=== PATIENT | female | born 1985 | race Caucasian/White ===

== ENCOUNTER → 2017-12-29 | Day surgery (SDC) | payer BC ==
[~2017-12-29] MED LIST: FENTANYL CITRATE/PF 100MCG/2 ML INJ ONE; HYOSCYAMINE SULFATE 0.5 MG/ML INJ ONE; METOCLOPRAMIDE HCL 10 MG/2ML VIAL ONE; MIDAZOLAM HCL 5MG/ML 2ML VIAL ONE; PROPOFOL IV EMULSION 10 MG/ML 20 ML VIAL ONE
--- OUTSIDE RECORDS SUMMARY | 2017-12-29 11:17 | XMS REPORT | Clinical Summary ---
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 Role Phone Rick Marie MD PCP Allergies Comments Active Allergy Reactions Severity Noted Date Penicillins Hives, 10/30/2015 Itching Medications No known medications Active Problems Problem Noted Date Alopecia 10/30/2015 Vulvar lump 10/30/2015 Hx of abnormal cervical Pap smear 10/30/2015 Overview: Cryosurgery 8 years ago HPV last year Encounters Care Team Description Date Type Specialty Rhonda Holliday MD Cyst of [place]'s gland (Primary Dx) 07/20/2017 Office Visit Obstetrics and Gynecology after 12/28/2016 Family History Medical History Relation Name Comments Colon cancer Father Heart disease Paternal Grandfather Heart disease Paternal Grandmother Relation Name Status Comments Father Alive Paternal Grandfather Paternal Grandmother Social History Date Tobacco Use Types Packs/Day Years Used Current Every Day Smoker Cigarettes 1 Smokeless Tobacco: Never Used Alcohol Use Drinks/Week oz/Week Comments Yes social Sex Assigned at Date Recorded Not on file Industry Job Start Date Occupation Not on file Not on file Not on file Travel End Travel History Travel Start No recent travel history available. Last Filed Vital Signs Time Taken Vital Sign Reading 07/20/2017 3:00 PM CDT Blood Pressure 121/75 07/20/2017 3:00 PM CDT Pulse 76 - Temperature - - Respiratory Rate - - Oxygen Saturation - - Inhaled Oxygen - Concentration 07/20/2017 3:00 PM CDT Weight 68.5 kg (151 lb) 07/20/2017 3:00 PM CDT Height 175.3 cm (5' 9") 07/20/2017 3:00 PM CDT Body Mass Index 22.3 Plan of Treatment Health Maintenance Due Date Last Done Comments MMR VACCINES (1 of - 1986 Standard series) VARICELLA VACCINES (1 of 1998 2 - 2-dose adolescent series) CERVICAL CANCER SCREENING 2006 INFLUENZA VACCINE 09/08/2017 HEPATITIS B VACCINES Aged Out No longer eligible based on patient's age to complete this topic IPV VACCINES Aged Out No longer eligible based on patient's age to complete this topic MENINGOCOCCAL VACCINE Aged Out No longer eligible based on patient's age to complete this topic Results Not on fileafter 12/28/2016 Insurance Payer Benefit Subscriber ID Type Phone Address Plan / Group BCBS BCBS xxxxxxxxxxxx PPO CHOICE PPO/KAREEN SANDS PPO Advance Directives Patient has advance care planning documents on file. For more information, israel dominguez contact: Karlos Acuna [address] [place] [address]
--- OUTSIDE RECORDS SUMMARY | 2017-12-29 11:18 | XMS REPORT | Continuity of Care Document ---
Author Author [facility] Address Unknown Phone Unavailable Problems Problem Status Onset Date Classification Date Reported Comments Source Urinary tract infectious disease 11/03/2017 Diagnosis 11/03/2017 [facility] Acute lower respiratory tract infection 09/24/2016 Diagnosis 09/29/2016 [facility] Tobacco user 09/24/2016 Diagnosis 09/29/2016 [facility] Urinary Tract Infectious Disease Problem 11/03/2017 [facility] Medications Medication Details Route Status Patient Instructions Ordering Provider Order Date Source 200 ACTUAT Albuterol 0.09 MG/ACTUAT Metered Dose Inhaler albuterol sulfate HFA 90 mcg/actuation aerosol inhaler Inhale 2 puffs every 4 hours by inhalation route as needed. Active [facility] Azithromycin 250 MG Oral Tablet azithromycin 250 mg tablet TAKE 2 TABLETS (500 MG) BY ORAL ROUTE ONCE DAILY FOR 1 DAY THEN 1 TABLET (250 MG) BY ORAL ROUTE ONCE DAILY FOR 4 DAYS Active [facility] Albuterol 0.83 MG/ML Inhalant Solution albuterol sulfate 2.5 mg/3 mL (0.083 %) solution for nebulization Give 1 inhalation every 20 minutes by nebulizer route as needed Active [facility] Sulfamethoxazole 800 MG / Trimethoprim 160 MG Oral Tablet [Bactrim] Bactrim DS 800 mg-160 mg tablet Take 1 tablet every 12 hours by oral route as directed for 5 days. Active [facility] Phenazopyridine hydrochloride 200 MG Oral Tablet phenazopyridine 200 mg tablet Take 1 tablet 3 times a day by oral route for 3 days. Active [facility] Allergies, Adverse Reactions, Alerts Substance Category Reaction Severity Reaction type Status Date Reported Comments Source Penicillins Allergy to substance 09/24/2016 [facility] Immunizations Immunization Date Given Site Status Last Updated Comments Source Tdap 02/09/2008 completed [facility] Results Order Name Results Value Reference Range Date Interpretation Comments Source Urinalysis macro (dipstick) panel - Urine COLOR : Yellow 11/03/2017 [facility] Urinalysis macro (dipstick) panel - Urine CLARITY : Turbid 11/03/2017 [facility] Urinalysis macro (dipstick) panel - Urine LEUKOCYTES : Large 11/03/2017 [facility] Urinalysis macro (dipstick) panel - Urine NITRITES : Negative 11/03/2017 [facility] Urinalysis macro (dipstick) panel - Urine UROBILINOGEN : 1 11/03/2017 [facility] Urinalysis macro (dipstick) panel - Urine PROTEIN : 100 11/03/2017 [facility] Urinalysis macro (dipstick) panel - Urine pH : 8.0 11/03/2017 [facility] Urinalysis macro (dipstick) panel - Urine BLOOD : Large 11/03/2017 [facility] Urinalysis macro (dipstick) panel - Urine SPECIFIC GRAVITY : 1.005 11/03/2017 [facility] Urinalysis macro (dipstick) panel - Urine KETONES : Negative 11/03/2017 [facility] Urinalysis macro (dipstick) panel - Urine BILIRUBIN : Negative 11/03/2017 [facility] Urinalysis macro (dipstick) panel - Urine GLUCOSE Negative 11/03/2017 [facility] Vital Signs Vital Sign Value Date Comments Source Diastolic (mm Hg) 68 11/03/2017 [facility] Height 69 11/03/2017 [facility] Systolic (mm Hg) 110 11/03/2017 [facility] Weight 154 11/03/2017 [facility] Diastolic (mm Hg) 68 09/24/2016 [facility] Height 69 09/24/2016 [facility] Systolic (mm Hg) 124 09/24/2016 [facility] Weight 134 09/24/2016 [facility] Encounters Location Location Details Encounter Type Encounter Number Reason For Visit Attending Provider ADM Date DC Date Status Source [place] - [facility] - [id number] Kevin Lagman, KUSH: [address] [place] [address], Ph. [id number] Cristobal Pringle 09/24/2016 [facility] [place] - [facility] - [id number] Kevin Lagman, BAGGAGE CHECKER: [address] [place] [address], Ph. [phone] [id number] Cristobal Pringle 09/24/2016 [facility] [place] - [facility] - [id number] Nayak, BAGGAGE CHECKER: [address], [place] [address], Ph. [id number] Gabriel Nayak 11/03/2017 [facility] Procedures Procedure Code Date Perfomer Comments Source
--- OUTSIDE RECORDS SUMMARY | 2017-12-29 11:18 | XMS REPORT | Encounter Summary ---
Author Organization Unknown Address [address] [place] [address] Phone [phone] Reason for Visit Medical Complaint Instructions 1. Acute lower respiratory tract infection azithromycin 250 mg tablet albuterol sulfate HFA 90 mcg/actuation aerosol inhaler albuterol sulfate 2.5 mg/3 mL (0.083 %) solution for nebulization 2. Tobacco user stopping smoking: care instructions Discussion Note Pt is aaox3 and in NAD; verbalizes understanding of all instructions and has no further questions at this time Plan of Care Patient Instructions Take medications as prescribed and discussed; follow up with your PCP within 2-3 days or sooner should symptoms worsen. Go to the ER if you experience shortness of breath or difficulty breathing despite using medications prescribed today. Reminders Provider Appointments None recorded. Lab None recorded. Referral None recorded. Procedures None recorded. Surgeries None recorded. Imaging None recorded. Medications Name Start Date albuterol sulfate 2.5 mg/3 mL (0.083 %) solution for nebulization Give 1 inhalation every 20 minutes by nebulizer route as needed albuterol sulfate HFA 90 mcg/actuation aerosol inhaler Inhale 2 puffs every 4 hours by inhalation route as needed. azithromycin 250 mg tablet TAKE 2 TABLETS (500 MG) BY ORAL ROUTE ONCE DAILY FOR 1 DAY THEN 1 TABLET (250 MG) BY ORAL ROUTE ONCE DAILY FOR 4 DAYS Medications Administered Name Date albuterol sulfate 2.5 mg/3 mL (0.083 %) solution for nebulization Give 1 inhalation every 20 minutes by nebulizer route as needed [id number] Vitals Height Weight BMI Blood Pressure 5 ft 9 in 134 lbs 19.8 kg/m2 124/68 mm[Hg] Lab Results None recorded. Allergies Code Code System Name Reaction Severity Status Onset Penicillins Active Problems Name Status Onset Date Source Urinary Tract Infectious Disease Active Encounter Procedures None recorded. 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 History of Present Illness Wheezing / Cough Reported By: Patient HPI: Location: chest. Quality: congested, tightness, pressure, productive cough, colored phlegm, wheezy cough, wheezing. Severity: worsening, mild, moderate. Duration: 7 days, constant. Onset/Timing: gradual. Context: no foreign travel, sick contact, smoker, allergies. Modifying factors: ; none. Associated Symptoms: no fever, no chills, no sweats, no chest pain, no edema, no heartburn, no significant weight gain, no significant weight loss, no sore throat, no nausea, no vomiting, no diarrhea, no rash, no muscle aches, no headache, yellow-green, thick sputum, shortness of breath, wheezing, morning cough, post nasal drip Review of Systems:ROS as noted in the HPI Review of Systems Basic Reported By: Patient Physical Exam Adult Basic, Adult Female Complete Reported By: Patient Constitutional: General Appearance: healthy-appearing, well-nourished, well-developed. Level of Distress: NAD. Ambulation: ambulating normally Psychiatric: Mental Status: active and alert. Orientation: to time, to place, to person Gka-Rljr-Bjvff-Throat: Ears: no lesions on external ear, no outer ear tenderness, EACs clear, TMs clear. Hearing: no hearing loss. Nose: no lesions on external nose, nares patent, no septal deviation, nasal passages clear, no sinus tenderness, no nasal discharge. Lips, Teeth, and Gums: no mouth or lip ulcers, no bleeding gums, normal dentition. Oropharynx: moist mucous membranes, no erythema, no exudates, tonsils not enlarged Neck: Lymph Nodes: no cervical LAD, no supraclavicular LAD Lungs: Respiratory effort: no dyspnea, no tachypnea, no use of accessory muscles, no intercostal retractions. Auscultation: expiratory wheezing, wet rales/crackles, rales / crackles on the left, rales/crackles on the right Cardiovascular: Heart Auscultation: RRR, no murmurs Neurologic: Gait and Station: normal gait, normal station
--- OUTSIDE RECORDS SUMMARY | 2017-12-29 11:18 | XMS REPORT | Encounter Summary ---
Author Organization Unknown Address [address] [place] [address] Phone [phone] Reason for Visit Medical Complaint Instructions 1. Acute lower respiratory tract infection azithromycin 250 mg tablet albuterol sulfate HFA 90 mcg/actuation aerosol inhaler 2. Tobacco user stopping smoking: care instructions [...] recorded. Medications Name Start Date albuterol sulfate HFA 90 mcg/actuation aerosol inhaler Inhale 2 puffs every 4 hours by inhalation route as needed. azithromycin 250 mg tablet TAKE 2 TABLETS (500 MG) BY ORAL ROUTE ONCE DAILY FOR 1 DAY THEN 1 TABLET (250 MG) BY ORAL ROUTE ONCE DAILY FOR 4 DAYS Medications Administered None recorded. Vitals Height Weight BMI Blood Pressure 5 [...] Lower Respiratory Tract Infection; Tobacco User Cristobal Pringle, KUSH: [address] [facility], [place] [address], Ph. History of Present Illness Wheezing / [...] Orientation: to time, to place, to person Mco-Fcoa-Aceer-Throat: Ears: no lesions on external ear, no [...]
--- OUTSIDE RECORDS SUMMARY | 2017-12-29 11:18 | XMS REPORT ---
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 Allergies, Adverse Reactions, Alerts This patient has no known allergies or adverse reactions. Medications This patient has no known medications. Results Test Description Test Time Test Comments Text Results Atomic Results Result Comments HUMERUS RIGHT 2+VIEWS [place] [address] Patient Name: ESTUARDO SANDHU MR #: [id number] : 1985 Age/Sex: 31/F Req #: [id number] Adm Physician: Ordered by: LILLY NUGENT MD Report #: [id number] Location: ER Room/Bed: Procedure: [id number] DX/HUMERUS RIGHT 2+VIEWS Exam Date: 01/09/17 Exam Time: 0040 REPORT STATUS: Signed HUMERUS RIGHT 2+VIEWS HISTORY: Right humeral trauma COMPARISON: None FINDINGS: Bones: Acute, comminuted minimally displaced and angulated fracture of the proximal right humerus Joints: The joint spaces are well-maintained. Soft tissues: The soft tissues appear unremarkable. IMPRESSION: Acute, comminuted fracture of the proximal right humerus Signed by: Dr. Wally Craig M.D. on 01/09/2017 12:56 AM Dictated By: WALLY MARTINEZ MD Transcribed By: MICHEL on 01/09/1755 COPY TO: LILLY NUGENT MD SHOULDER RIGHT COMPLETE [place] [address] Patient Name: ESTUARDO SANDHU MR #: [id number] : 1985 Age/Sex: 31/F Req #: [id number] Adm Physician: Ordered by: LILLY NUGENT MD Report #: [id number] Location: ER Room/Bed: Procedure: [id number] DX/SHOULDER RIGHT COMPLETE Exam Date: 01/09/17 Exam Time: 0040 REPORT STATUS: Signed SHOULDER RIGHT COMPLETE HISTORY: Right humeral trauma COMPARISON: None FINDINGS: Bones: Partially visualized, acute, comminuted minimally displaced and angulated fracture of the proximal right humerus Joints: The joint spaces are well-maintained. Soft tissues: The soft tissues appear unremarkable. The visualized lungs are clear IMPRESSION: Acute, comminuted fracture of the proximal right humerus no evidence of right shoulder or clavicular injury. Signed by: Dr. Wally Craig M.D. on 01/09/2017 12:57 AM Dictated By: WALLY MARTINEZ MD Transcribed By: MICHEL on 01/09/1756 COPY TO: LILLY NUGENT MD
--- OUTSIDE RECORDS SUMMARY | 2017-12-29 11:18 | XMS REPORT | Encounter Summary ---
Author Organization Unknown Address [address] [place] [address] Phone [phone] Care Team Providers Care Tobacco Sorter Name Role Phone Epifanio Marquez 3 [phone] Reason for Visit Medical Complaint Instructions 1. Urinary tract infectious disease culture, urine urinalysis, dipstick phenazopyridine 200 mg tablet urinary tract infection in women: care instructions Bactrim DS 800 mg-160 mg tablet Discussion Note I provided /reviewed healthwise handout Plan of Care Patient Instructions Take prescription as prescribed and f/u with PCP if symptoms persist or worsens within 5-7 days. Reminders Provider Appointments None recorded. Lab Culture, Urine 11/03/2017 [facility] Urinalysis, Dipstick 11/03/2017 [facility] Referral None recorded. Procedures None recorded. Surgeries None recorded. Imaging None recorded. Medications Name Start Date Bactrim DS 800 mg-160 mg tablet Take 1 tablet every 12 hours by oral route as directed for 5 days. phenazopyridine 200 mg tablet Take 1 tablet 3 times a day by oral route for 3 days. Medications Administered None recorded. Vitals Height Weight BMI Blood Pressure 5 ft 9 in 154 lbs 22.7 kg/m2 110/68 mm[Hg] Lab Results Date Name Specimen Result Interpretation Description Value Range Status Address Urinalysis, Dipstick Color : Yellow [facility]: [address] [place] [address] Clarity : Turbid [facility]: [address] [place] [address] Leukocytes : Large [facility]: [address] [place] [address] Nitrites : Negative [facility]: [address] [place] [address] Urobilinogen : 1 [facility]: [address] [place] [address] Protein : 100 [facility]: [address] [place] [address] Ph : 8.0 [facility]: [address] [place] [address] Blood : Large [facility]: [address] [place] [address] Specific Scroggins : 1.005 [facility]: [address] [place] [address] Ketones : Negative [facility]: [address] [place] [address] Bilirubin : Negative [facility]: [facility] Glucose Negative [facility]: [facility] Allergies Code Code System Name Reaction Severity Status Onset Penicillins Active Problems Name Status Onset Date Source Urinary Tract Infectious Disease Active Encounter Procedures None recorded. 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 History of Present Illness [id number] Reported By: Patient HPI: Location: vagina. Quality: pressure, burning. Severity: moderate. Duration: constant. Onset/Timing: sudden. Context: not sexually active, no known exposure to STD, no prior history of STDs, history of urine cultures/antibiotic treatment. Modifying factors OTC medication. Associated Symptoms: no fever/chills, no flank pain, no jaundice, no blood in the urine, no vaginal discharge, no blisters on genitals, no rash on genitals, no muscle aches, no headache, pain during urination, burning sensation during urination, urgency, urinary frequency, feeling of incomplete emptying of bladder; Bloody discharge Review of Systems:ROS as noted in the HPI Review of Systems Basic Reported By: Patient Physical Exam Adult Basic, Adult Female Complete Reported By: Patient Constitutional: General Appearance: healthy-appearing, well-nourished, well-developed. Level of Distress: NAD. Ambulation: ambulating normally Psychiatric: Mental Status: active and alert. Orientation: to time, to place, to person Lungs: Respiratory effort: no dyspnea, no tachypnea, no use of accessory muscles, no intercostal retractions. Auscultation: breath sounds normal Cardiovascular: Heart Auscultation: RRR, no murmurs Abdomen: Inspection and Palpation: soft, non-distended, no guarding, no rebound tenderness, no masses, no CVA tenderness, suprapubic tenderness
[2017-12-29 17:00] VITALS: BP 119/80
[2017-12-29 18:45] LABS: WBC,FECAL (FECAL LACTOFERRIN) NEGATIVE (NEGATIVE)
--- NOTE | 2017-12-30 04:23 | Operative Report ---
DATE OF PROCEDURE: December 29, 2017 REFERRING PHYSICIAN: Dr. Dipak Gramajo. PROCEDURES PERFORMED 1. Esophagogastroduodenoscopy with esophageal dilatation and biopsies. 2. Colonoscopy with polypectomy and biopsies. INDICATIONS FOR ESOPHAGOGASTRODUODENOSCOPY: Acid reflux and dysphagia. INDICATIONS FOR COLONOSCOPY: History of diarrhea. MEDICATIONS: Patient was done under MAC. Please see anesthesiologist's note. ESOPHAGOGASTRODUODENOSCOPY: With the patient in the left lateral decubitus position, a flexible fiberoptic Olympus gastroscope was introduced into the esophagus under direct visualization without any difficulty. There was some patchy erythema noted in the distal esophagus. Esophagus was dilated to size 52-[place]. The scope was then advanced with ease into the stomach. Mucosa overlying the antrum and the body revealed some patchy erythema and low-grade edema and biopsies were obtained and sent to stain for H. pylori. The pylorus was somewhat stenotic, but it opened up nicely with repetitive intubations with the scope, which was advanced all the way to the 2nd portion of the duodenum. Some folds were scalloped and those were biopsied and stent to rule out sprue. The scope was then withdrawn back into the stomach and retroflexed. Mucosa overlying the fundus and cardia appeared to be within normal limits. The scope was then straightened out. It was subsequently withdrawn. Patient tolerated the procedure well. IMPRESSION 1. Distal esophagitis, mild. 2. Esophagus dilated to size 52-[place]. 3. Gastritis biopsied. Biopsies sent to stain for Helicobacter pylori. 4. Rule out sprue. PLAN: Follow up histology. Initiate Protonix 40 mg 1 p.o. q.a.m. a.c. COLONOSCOPY: Patient was then turned around. After adequate lubrication of the anal canal, a flexible fiberoptic Olympus colonoscope was inserted into the rectum with ease and advanced all the way to the cecum. It was then withdrawn slowly. Mucosa overlying the cecum, ascending colon, and transverse colon appeared to be within normal limits. There were some patchy mild inflammatory changes noted in the distal descending and the sigmoid colon, and biopsies were obtained. Four polyps were hot biopsied. One polyp was snared from the sigmoid colon. The scope was then retroflexed into the distal rectum and small internal hemorrhoids were noted, none of which was actively bleeding. The scope was then straightened out. It was subsequently withdrawn after securing an adequate stool specimen that was sent for the appropriate stool studies. Patient tolerated the procedure well. IMPRESSION 1. Mild patchy left-sided colitis. 2. Sigmoid colon polyps x5; four hot biopsied and one snared. 3. Small internal hemorrhoids, none actively bleeding. PLAN 1. Follow up histology. 2. Follow up stool studies. 3. Initiate BSL#3 one p.o. daily. 4. Bentyl 10 mg 1 p.o. t.i.d. 1. Patient might benefit from a followup colonoscopy in 2-3 years. Job#: [id number] VAS cc:DR DIPAK GRAMAJO
[2017-12-30 11:51] LABS: C DIFFICILE TOXIN A&B AMP PROB NEGATIVE (NEGATIVE)
== END | disposition home or self-care (01) ==
LOC: OR 11:15
PROVIDERS: ATTEND Internal Medicine Gastroenterology
DX: K51.50 Left sided colitis without complications (principal); K63.5 Polyp of colon; K29.70 Gastritis, unspecified, without bleeding; K29.80 Duodenitis without bleeding; K21.9 Gastro-esophageal reflux disease without esophagitis; K20.9 Esophagitis, unspecified; K64.8 Other hemorrhoids; F41.8 Other specified anxiety disorders; R03.0 Elevated blood-pressure reading, without diagnosis of hypertension; Z01.810 Encounter for preprocedural cardiovascular examination; Z88.0 Allergy status to penicillin; Z87.891 Personal history of nicotine dependence; Z80.0 Family history of malignant neoplasm of digestive organs
CPT/HCPCS: 43239; 43450; 45380; 45384; 45385; 81025; 83630; 83993; 87045; 87177; 87328; 87493; 93005; J1980; J2250; J2704; J2765

== ENCOUNTER → 2020-10-17 | Day surgery (SDC) | payer BC ==
[~2020-10-17] MED LIST changes: -FENTANYL CITRATE/PF 100MCG/2 ML INJ ONE; -HYOSCYAMINE SULFATE 0.5 MG/ML INJ ONE; +LIDOCAINE HCL 2% LOCAL INJ 5 ML SDV VIAL INJ ONE; -MIDAZOLAM HCL 5MG/ML 2ML VIAL ONE; +VITAMIN D PO
[2020-10-17 10:10] VITALS: BP 123/86
[2020-10-17 16:07] LABS: WBC,FECAL (FECAL LACTOFERRIN) NEGATIVE (NEGATIVE)
[2020-10-18 08:33] LABS: C DIFFICILE TOXIN A&B AMP PROB NEGATIVE (NEGATIVE)
[2020-10-22 05:11] LABS: ENDOMYSIAL ANTIBODIES, IGA Negative (Negative)
== END | disposition home or self-care (01) ==
LOC: OR 06:01
PROVIDERS: ATTEND Internal Medicine Gastroenterology
DX: K21.9 Gastro-esophageal reflux disease without esophagitis (principal); K63.5 Polyp of colon; K31.7 Polyp of stomach and duodenum; K29.50 Unspecified chronic gastritis without bleeding; K52.9 Noninfective gastroenteritis and colitis, unspecified; K20.90 Esophagitis, unspecified without bleeding; K62.89 Other specified diseases of anus and rectum; K64.8 Other hemorrhoids; Z88.0 Allergy status to penicillin; Z01.810 Encounter for preprocedural cardiovascular examination; Z01.812 Encounter for preprocedural laboratory examination; Z20.822 Contact with and (suspected) exposure to COVID-19; Z80.0 Family history of malignant neoplasm of digestive organs
CPT/HCPCS: 43239; 43450; 45380; 81025; 82784; 83516; 83630; 83993; 86256; 87045; 87177; 87328; 87493; C9113; J2001; J2704; J2765; U0002; 45378

== ENCOUNTER → 2021-08-27 | Outpatient (CLI) | payer BC ==
[~2021-08-27] MED LIST changes: +DIATRIZOATE MEGL/DIATRIZOA SOD 30 ML BTL PO ONE; +IOPAMIDOL 370 MG/ML 100 ML INFUS..BTL INJ ONE; -LIDOCAINE HCL 2% LOCAL INJ 5 ML SDV VIAL INJ ONE; -METOCLOPRAMIDE HCL 10 MG/2ML VIAL ONE; -PROPOFOL IV EMULSION 10 MG/ML 20 ML VIAL ONE
== END ==
LOC: CT 07:40
PROVIDERS: ATTEND Internal Medicine Gastroenterology
DX: K62.89 Other specified diseases of anus and rectum (principal)
CPT/HCPCS: 72193; 81025; Q9967; Q9963